=== PATIENT | female | born 1940 | race Caucasian/White ===

== ENCOUNTER 2017-05-22 14:11 | Inpatient (IN) ==
[2017-05-22] MEDS ORDERED: NITROGLYCERIN 2% OINT 1 INCH/GM PACK TOP STA (15:53)
[2017-05-22] MEDS ORDERED: ONDANSETRON 4 MG/2 ML VIAL IV STA (15:53)
[2017-05-22] MEDS ORDERED: FUROSEMIDE 40 MG/4 ML VIAL IV STA (15:53)
[2017-05-22] MEDS ORDERED: ASPIRIN 325 MG TABLET PO STA (15:53)
[2017-05-22] MEDS ORDERED: ALBUTEROL NEB SOLN 5 MG/ML 20 ML/BOTTLE CONT NEB STA (15:53)
[2017-05-22] MEDS ORDERED: methylPREDNISolone SOD SUC 125 MG/2 ML VIAL IV STA (15:53)
[2017-05-22] MEDS ORDERED: MORPHINE 2 MG/1 ML SYRINGE IV STA (15:53)
[2017-05-22 16:12] LABS: Basophils % 0.5 % (0.0-0.8); Eosinophils % 0.3 % (0.00-10.9); Hemoglobin 12.6 GM/DL (12.0-16.0); Immature Granulocytes % 0.3 %; Immature Granulocytes Absolute 0.02 #; Lymphocytes # 0.7 10*3/uL (1.4-4.0); Lymphocytes % 11.6 % (21.3-54.2); Mean Corpuscular HGB Conc 31.5 GM/DL (32-36); Mean Corpuscular Hemoglobin 28 PG (27-34); Mean Corpuscular Volume 89.9 FL (87-102); Mean Platelet Volume 11.6 FL (9.6-12.0); Monocytes # 0.1 10*3/uL (0.11-0.8); Monocytes % 1.9 % (1.7-12.7); Neutrophils # 4.9 10*3/uL (1.4-7.4); Neutrophils % 85.4 % (38.7-73.9); Platelet Count 200 T/CUMM (130-400); Red Blood Count 4.45 MC/CUMM (3.8-5.5); Red Cell Distribution Width 13.2 % (9.3-17.3); White Blood Count 5.8 T/CUMM (4-12)
[2017-05-22] MEDS ORDERED: FUROSEMIDE 40 MG/4 ML VIAL ONE (16:15)
[2017-05-22] MEDS ORDERED: ONDANSETRON 4 MG/2 ML VIAL ONE (16:15)
[2017-05-22] MEDS ORDERED: NITROGLYCERIN 2% OINT 1 INCH/GM PACK TOP ONE (16:15)
[2017-05-22] MEDS ORDERED: FUROSEMIDE 20 MG/2 ML VIAL ONE (16:16)
[2017-05-22] MEDS ORDERED: methylPREDNISolone SOD SUC 125 MG/2 ML VIAL ONE (16:16)
[2017-05-22] MEDS ORDERED: MORPHINE 2 MG/1 ML SYRINGE ONE (16:16)
[2017-05-22] MEDS ORDERED: ASPIRIN 325 MG TABLET ONE (16:16)
[2017-05-22 16:20] LABS: INR 1.2; PT Patient Result 12.5 SECS
--- NOTE | 2017-05-22 16:21 | XRay Report ---
XR chest 1V portable Indication: Chest pain Comparison: Chest x-ray dated October 09, 2016 Technique: Single frontal view of the chest. Findings: The cardiomediastinal silhouette is stable in configuration. Mild patchy opacification within the left lung base suspicious for pneumonia. Visualized osseous and surrounding soft tissue structures appear grossly unchanged. IMPRESSION: Mild patchy opacification within the left lung base suspicious for pneumonia. PROCEDURE INTERPRETED AT [facility] Final Report Signed by: Dr Gilbert Tse
[2017-05-22] MEDS ORDERED: cefTRIAXone 1,000 MG in SODIUM CHLORIDE 0.9% 100 ML IV STA (16:25)
[2017-05-22 16:30] LABS: Lactic Acid 1.4 MMOL/L (0.4-2.0)
--- NOTE | 2017-05-22 16:33 | Emergency Department Note ---
Shaun Mooney Rolonda, am scribing for, and in the presence of, Ravindra Pritchett MD 16:29. Shreyas Mooney Charles R, MD, personally performed the services described in this documentation, ascribed by Pj Dunn in my presence, and it is both accurate and complete [id number] . Arrival - Arrival Chief Complaint: Chest Pain Stated Complaint: chest pain ED Nursing Triage Note: reports was at dr amador office and given an iron infusion left there at 1350 and started having chest pain sharp pain in center of chest that comes and goes. pt sounds congested is anxious and color is dusky. pt is sob and reports feels like a knife is stabbing her when she takes a deep breath Mode of Arrival: Wheelchair Limitations: No Limitations Source: Patient, Significant other (daughter), Old Records Reviewed, RN Notes Reviewed Time Seen by Provider: 05/22/17 15:52 - History of Present Illness HPI Narrative: Pt is a 77 y/o female who was transferred from Dr. Amador to the ED for further evaluation of chest pain with an onset of this morning. Pt has a PMHx of COPD, CHF, Asthma, and PE in the legs and lungs. Daughter states that pt had received her first iron infusion this morning and began to feel light headed and became dizzy as they were leaving. Pt confirms chest pain when taking deep breaths, feels as if she is smothering while laying prone, and swelling in the hands and feet after the infusion. She states that she is taking 40mg Lasix and has been taking Xarelto since x1 month. No other complaint/pain in ED. Onset (ago): hour(s) Consistency: constant Severity: moderate Severity scale (1-10): 5 Allergies/Adverse Reactions: Allergies Allergy/AdvReac Type Severity Reaction Status Date / Time heparin Allergy ANAPHYLAXIS Verified 05/22/17 14:30 Review of System - Review of System 12 point system: reviewed and no additional remarkable complaints except as stated - Review of System Constitutional: Absent: chills, fever Respiratory: Absent: cough Cardiovascular: Present: chest pain (with deep breaths) Musculoskeletal: Present: back pain, joint swelling (feet and hands after infusion) Neurological: Absent: numbness Medical,Surgical,& Family Hx - Medical History Cardio: History of: CHF Respiratory: History of: Asthma, COPD, Pulmonary Embolism Hematology: History of: Bleeding Problems (dvt) - Surgical History Cardiac Surgeries: Sugical HX of: Cardiac Catheterization (3 stents) - Social History Smoking Status: Former smoker Exam Vital Signs: Vital Signs Temperature 97.4 F L 05/22/17 15:30 Pulse Rate 59 L 05/22/17 16:30 Respiratory Rate 20 05/22/17 16:30 Blood Pressure 144/92 05/22/17 16:30 O2 Sat by Pulse Oximetry 100 05/22/17 16:30 - General General appearance: alert, in no apparent distress - Head Head exam: Present: atraumatic, normocephalic - Eye Eye exam: Present: PERRL, EOMI - ENT ENT exam: Present: mucous membranes moist. Absent: mucous membranes dry - Neck Neck exam: Present: full ROM. Absent: tenderness - Chest Chest inspection: Present: symmetric chest wall rise. Absent: tenderness - Respiratory Respiratory exam: Present: accessory muscle use, rales (at base), respiratory distress (has to sit up to breathe), wheezes (harsh bronchiole wheezes), other ( pulmonary edema; volume expansion) - Cardiovascular Cardiovascular exam: Present: regular rate, normal rhythm, normal heart sounds. Absent: murmur - Abdominal Exam Abdominal exam: Present: soft, normal bowel sounds. Absent: tenderness - Extremities Exam Extremities exam: Present: pedal edema (+1 bilaterally), joint swelling (hands and feet due to infusion) - Back Exam Back exam: Present: full ROM. Absent: tenderness - Neurological Exam Neurological exam: Present: alert, oriented X3, CN II-XII intact - Psychiatric Psychiatric exam: Present: normal affect, normal mood - Skin Skin exam: Present: warm, dry, intact, normal color. Absent: rash Course - Consultations Consultation #1: spoke to Dr Amador he does not think this relates to iron infusion to go ahead and admit to hospitalist for COPD exacerbation pneumonia Time: 17:00 Consultation #2: Hospitalist will admit patient Time: 17:01 Results - Labs CBC & BMP: 05/22/17 15:53 05/22/17 15:53 Lab Results: I have reviewed the patients labs Critical Care Time Critical Care Time: Yes Total Critical Care Time: 60 Disposition Clinical Impression: Atypical chest pain, Pneumonia, COPD exacerbation, Acute dyspnea Case discussed with: patient, patient's family Disposition: Still a Patient Condition: Stable Time of Disposition: 17:00
[2017-05-22 16:35] LABS: Apearance,Urine CLEAR (Clear); Bilirubin,Urine Negative (Negative); Blood, Urine Negative (Negative); Glucose,Urine (UA) Negative (Negative); Ketones,Urine 5 mg/dL (Negative); Mucus,Urine Occasional /LPF (Occasional); Nitrite,Urine Negative (Negative); Protein,Urine Negative; RBC,Urine 2 /HPF (0-4); Squamous Epithelial Cell,Urine Occasional /HPF (0-10); Urine Color Yellow (Yellow); Urine Specific Gravity 1.013 (1.001-1.035); Urine Urobilinogen < 2.0 EU/DL (0.2-1.0); WBC,Urine 1 /HPF (0-6)
[2017-05-22 16:47] LABS: Alanine Aminotransferase 13 U/L (13-56); Albumin 3.2 G/DL (3.4-5.0); Alkaline Phosphatase 67 U/L (45-117); Aspartate Amino Transferase 10 U/L (0-37); Bilirubin,Total < 0.39 MG/DL (0.2-1.0); Blood Urea Nitrogen 25 MG/DL (7-18); Calcium 8.9 MG/DL (8.5-10.1); Glucose 156 MG/DL (74-106); Magnesium 2.4 MG/DL (1.8-2.4); Potassium 4.4 MMOL/L (3.5-5.1); Sodium 143 MMOL/L (136-145)
[2017-05-22] MEDS ORDERED: cefTRIAXone 1,000 MG VIAL ONE (17:00)
--- NOTE | 2017-05-22 18:29 | Hospitalist History & Physical ---
Assessment and Plan - Time spent with patient Time spent with patient: Greater than 30 minutes (1) History of blood clot in brain Status: Acute Assessment and plan: Ms. 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 Patient will be started on antibiotics and breathing treatments. Once her meds have been entered into the [facility] system they will be reconciled. Patient will need to remain on her chronic anticoagulation due to her history of clots. Dr. Bang will see and examined patient and further recommendations to follow. Current Visit: Yes (2) Chronic anticoagulation Status: Acute Current Visit: Yes (3) Atypical chest pain Status: Acute Current Visit: Yes (4) Pneumonia Status: Acute Current Visit: Yes (5) COPD exacerbation Status: Acute Current Visit: Yes History of Present Illness Chief complaint: Shortness of breath History of present illness: Ms. Worthington is a 77 year old white female with history of COPD, CHF, asthma, and multiple PEs in the legs and stomach presenting to the ED with shortness of breath, dizziness and chest pain. Patient states she has been anemic and saw Dr. Chapman in his office this morning for an iron transfusion. She states she left his office and started having sharp pain in the center of her chest that comes and goes and feels like a knife stabbing her when she takes a deep breath. She denies headache, dysphagia, hematemesis, hematochezia, diarrhea or constipation, or lower extremity edema. She states she has chronic stomach pain from those clots in her stomach. She says she has [address] Ramirez due to coronary artery disease but denies UT. She states she also has a IVC filter and a "stent in her stomach". Patient had been on Coumadin and Plavix but those both have been stopped and she has been on Xarelto now for 1 month. Upon exam patient has some mild conversational dyspnea and some coarseness bilaterally in her lungs. Her labs are relatively normal and her chest x-ray showing mild patchy opacification within the left lung base suspicious for pneumonia. After discussion with Dr. Pritchett the ED physician and Dr. Bang the admitting hospitalist, it was agreed patient would be admitted for evaluation and treatment. Patient's medications have not been entered into [facility] as of yet and the family did not have a list. As soon as medications are available they will be reconciled. Patient is also a full code. Allergies Allergy/AdvReac Type Severity Reaction Status Date / Time heparin Allergy ANAPHYLAXIS Verified 05/22/17 14:30 Medical,Surgical,& Family Hx - Medical History Cardio: History of: CHF Respiratory: History of: Asthma, COPD, Pulmonary Embolism Hematology: History of: Bleeding Problems (dvt) - Surgical History Cardiac Surgeries: Sugical HX of: Cardiac Catheterization (3 stents) - Family History Family History: Reports;: Family Heart Disease - Social History Smoking Status: Former smoker Have you smoked in the last 12 months: No Frequency of Alcohol Use: None Type of Drug Use: None Marital Status: Lives With:: Alone Functional capacity: independent ambulation Review of systems: A complete 10 system review of systems was obtained and pertinent positives and negatives per HPI Exam - Constitutional Vitals: Period Temp Pulse Resp BP Sys/Liriano Pulse Ox Last 24 Hr 97.4 F-97.4 F 59-81 18-26 121-160/71-92 97-100 Exam: Constitutional System: Mild distress. No tremulousness. Head: Normocephalic, atraumatic. Ears, Nose and Throat System: No evidence of Otitis or Mastoiditis. No epistaxis or discharge Eyes System: Pupils equal, round, and reactive. Extraocular muscles intact. Neck: Supple, without adenopathy, No jugular venous distention. No thyromegaly, neck mass, or prior surgery apparent. Respiratory System: Chest coarse bilaterally to auscultation. Cardiovascular System: Heart with regular rate and rhythm. No murmur. GI System: Abdomen soft, mildly tender. Normo active bowel sounds present. Musculoskeletal System: limbs with no pedal edema. Full distal pulses. Neurological System: No discernable sensory deficit. No aphasia Psychiatric System: Conversation is rational Results - Labs CBC & BMP: 05/22/17 15:53 05/22/17 15:53 Lab Results: I have reviewed the past 24 hour labs - EKG EKG results: sinus rhythm EKG shows: sinus rhythm - Diagnostic Findings Procedure: Chest x-ray: report reviewed by me (Mild patchy opacification within the left lung base suspicious for pneumonia.)
[2017-05-22] MEDS ORDERED: PROMETHAZINE 25 MG/1 ML VIAL IM PRN (18:39)
[2017-05-22] MEDS ORDERED: DOCUSATE SODIUM 100 MG CAPSULE PO PRN (18:39)
[2017-05-22] MEDS ORDERED: ACETAMINOPHEN 325 MG TABLET PO PRN ×2 (18:39)
[2017-05-22] MEDS ORDERED: ALBUTEROL 2.5 MG/3 ML NEB RESP TX PRN (18:39)
[2017-05-22] MEDS ORDERED: ALBUTEROL/IPRATROPIUM 3 ML NEB RESP TX PRN (18:39)
[2017-05-22] MEDS ORDERED: diphenhydrAMINE CAP 25 MG CAPSULE PO PRN (18:39)
[2017-05-22] MEDS ORDERED: guaiFENesin/DM ER 600-30 MG TABLET PO PRN (18:39)
[2017-05-22] MEDS ORDERED: MORPHINE 2 MG/1 ML SYRINGE IV PRN (18:39)
[2017-05-22] MEDS: LEVOFLOXACIN INJ 750 MG in PREMIX 1 EACH IV SCH (21:44)
[2017-05-22] MEDS: SODIUM CHLORIDE 0.9% 1,000 ML IV SCH (21:45)
[2017-05-22] MEDS: ONDANSETRON 4 MG/2 ML VIAL IV PRN (22:48)
[2017-05-22] MEDS ORDERED: TEMAZEPAM 15 MG CAPSULE PO SCH (23:00)
[2017-05-22] MEDS ORDERED: RIVAROXABAN 10 MG TABLET PO SCH (23:00)
[2017-05-23] MEDS: ONDANSETRON 4 MG/2 ML VIAL IV PRN ×2 (05:52→18:24)
[2017-05-23 06:43] LABS: Immature Granulocytes % 0.5 %; Immature Granulocytes Absolute 0.04 #; Lymphocytes % 12.4 % (21.3-54.2); Mean Corpuscular Hemoglobin 29 PG (27-34); Mean Corpuscular Volume 90.1 FL (87-102); Mean Platelet Volume 12.2 FL (9.6-12.0); Monocytes # 0.7 10*3/uL (0.11-0.8); Monocytes % 9.3 % (1.7-12.7); Neutrophils % 77.8 % (38.7-73.9); Platelet Count 164 T/CUMM (130-400); Red Cell Distribution Width 13.3 % (9.3-17.3)
[2017-05-23 06:49] LABS: Hemoglobin 9.6 GM/DL (12.0-16.0); Red Blood Count 3.33 MC/CUMM (3.8-5.5); White Blood Count 7.8 T/CUMM (4-12)
--- NOTE | 2017-05-23 07:45 | EKG Report ---
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
--- NOTE | 2017-05-23 07:45 | XRay Report ---
Exam: XR chest 2V Date: 05/23/2017 4:00 AM Indication: Shortness of breath Comparison: 05/22/2017 Technical: PA lateral Findings: Low volume left effusion and minimal atelectatic change infiltrate in the left base. Heart is normal in size. Prior cervical fusion. Mediastinum is unremarkable. The bony structures reveal no acute findings. Impression: 1. Left basilar pneumonic infiltrate and atelectasis and tiny effusion. 2. Prior cervical fusion. PROCEDURE INTERPRETED AT [facility] DEPARTMENT OF RADIOLOGY Final Report Signed by: Dr. Alpesh Prieto
[2017-05-23 09:21] LABS: Alanine Aminotransferase 12 U/L (13-56); Albumin 2.8 G/DL (3.4-5.0); Alkaline Phosphatase 54 U/L (45-117); Aspartate Amino Transferase 11 U/L (0-37); Bilirubin,Total < 0.39 MG/DL (0.2-1.0); Blood Urea Nitrogen 31 MG/DL (7-18); Calcium 8.6 MG/DL (8.5-10.1); Glucose 94 MG/DL (74-106); Magnesium 2.1 MG/DL (1.8-2.4); Osmolality,Calculated 289.1 MOS/KG (273-304); Phosphorous 4.3 MG/DL (2.5-4.9); Potassium 4.9 MMOL/L (3.5-5.1); Sodium 142 MMOL/L (136-145); Total Protein 5.3 G/DL (6.4-8.3)
[2017-05-23] MEDS: PANTOPRAZOLE 40 MG TABLET PO SCH (09:53)
[2017-05-23] MEDS: SODIUM CHLORIDE 0.9% 1,000 ML IV SCH ×2 (09:57→21:21)
--- NOTE | 2017-05-23 13:05 | Hospitalist Progress Note ---
Assessment and Plan - Time spent with patient Time spent with patient: Less than 30 minutes (1) Acute dyspnea Status: Acute Assessment and plan: patient complained of episodes of SOB throughout the night and this morning: Plan to continue antibiotics and continue home medications; a.m. labs. Current Visit: Yes (2) Atypical chest pain Status: Acute Current Visit: Yes (3) COPD exacerbation Status: Acute Current Visit: Yes (4) Chronic anticoagulation Status: Acute Current Visit: Yes (5) History of blood clot in brain Status: Acute Current Visit: Yes (6) Pneumonia Status: Acute Current Visit: Yes Hospitalist: Subjective Interval history: 05/23/27 Patient verbalizes she feels a little better but very little compared to yesterday but still feels short of breath often without exertion. Patient in no acute distress and was talking on phone when I entered the room without any distress. Exam - Constitutional Vitals: Period Temp Pulse Resp BP Sys/Liriano Pulse Ox Last 24 Hr 96.5 F-98.1 F 59-83 18-26 98-160/52-92 91-100 General appearance: normal weight - Head Head exam: Present: normal inspection - Eye Eye exam: Present: EOMI Pupils: Present: MAXIMO - Neck Neck exam: Present: normal inspection - Respiratory Respiratory exam: Present: rhonchi - GI/Abdominal GI/Abdominal exam: Present: normal bowel sounds, soft. Absent: guarding, tenderness, rebound - Extremities Exam Extremities exam: Absent: edema - Neurological Exam Neurological exam: Present: alert, oriented X3 - Psychiatric Psychiatric exam: Present: normal affect - Skin Skin exam: Present: normal color, warm, dry Results - Labs CBC & BMP: 05/23/17 05:45 05/23/17 06:33 Lab Results: I have reviewed the past 24 hour labs Quality Measures - VTE Contraindication to Pharmacological VTE Prophylaxis: Already on Theraputic Agent , No Prophylaxis Needed
[2017-05-23] MEDS ORDERED: NITROGLYCERIN SL 0.4 MG TABLET SL PRN (14:14)
[2017-05-23] MEDS ORDERED: FUROSEMIDE 40 MG TABLET PO PRN (14:14)
[2017-05-23] MEDS ORDERED: fentaNYL 100 MCG/HR PATCH TRANSDERM SCH (14:30)
[2017-05-23] MEDS ORDERED: LORazepam 0.5 MG TABLET PO SCH (14:30)
--- NOTE | 2017-05-23 15:24 | ECHO Report ---
Lauren Worthington Exam Date: 05/23/2017 09:26 Referring Physician: Technologist: Martina Torres Age: 77 Ht (in): 67 Wt (lb): 156 Gender: F Exam Location: [facility] Echo Indications: chronic anti coag, hx. blood clot brain, SOB, chest pain, COPD, pneumonia BP: 103 / 52 HR: 69 Rhythm: Sinus Technical Quality: Good IMPRESSIONS EF 55-60 % Grade I/IV diastolic dysfunction (abnormal relaxation filling pattern), normal to mildly elevated filling pressures. Normal right ventricular size. The right atrium is mildly enlarged. The left atrium is mildly enlarged. Mitral valve sclerosis. Trace mitral valve regurgitation. Aortic valve sclerosis. No aortic valve regurgitation. Mild tricuspid valve regurgitation. PAP40 mmHG. Morphologically normal pulmonic valve. No pericardial effusion. Normal size aortic root and proximal ascending aorta. MEASUREMENTS (Male / Female) Normal Values 2D ECHO LV Diastolic Diameter PLAX 4.1 cm 4.2 - 5.9 / 3.9 - 5.3 cm LV Systolic Diameter PLAX 3.1 cm LV Fractional Shortening PLAX 23.0 % IVS Diastolic Thickness 1.0 cm 0.6 - 1.0 / 0.6 - 0.9 cm LVPW Diastolic Thickness 1.0 cm 0.6 - 1.0 / 0.6 - 0.9 cm RV Internal Dim ED PLAX 2.3 cm Aortic Root Diameter 2.3 cm LA Systolic Diameter LX 3.0 cm 3.0 - 4.0 / 2.7 - 3.8 cm DOPPLER TR Peak Velocity 261.0 cm/s TR Peak Gradient 27.2 mmHg FINDINGS Left Ventricle EF 55-60 % Grade I/IV diastolic dysfunction (abnormal relaxation filling pattern), normal to mildly elevated filling pressures. Right Ventricle Normal right ventricular size. Right Atrium The right atrium is mildly enlarged. Left Atrium The left atrium is mildly enlarged. Mitral Valve Mitral valve sclerosis. Trace mitral valve regurgitation. Aortic Valve Aortic valve sclerosis. No aortic valve regurgitation. Tricuspid Valve Morphologically normal tricuspid valve. Mild tricuspid valve regurgitation. PAP40 mmHG. Pulmonic Valve Morphologically normal pulmonic valve. Pericardium No pericardial effusion. Aorta Normal size aortic root and proximal ascending aorta. Cirstian Cadena (Electronically Signed) Final Date: 23 May 2017 15:22
[2017-05-23] MEDS: FLUTICASONE/SALMETEROL 250-50 DISKUS 14 DOSE INH SCH ×2 (16:19→21:12)
[2017-05-23] MEDS: predniSONE 10 MG TABLET PO SCH (21:12)
[2017-05-23] MEDS: oxyCODONE/ACETAMINOPHEN 5-325 MG TABLET PO SCH (21:12)
[2017-05-23] MEDS: LORazepam 0.5 MG TABLET PO SCH (21:12)
[2017-05-23] MEDS: DOXYCYCLINE HYCLATE 100 MG CAPSULE PO SCH (21:13)
[2017-05-23] MEDS: DONEPEZIL 10 MG TABLET PO SCH (21:13)
[2017-05-23] MEDS: TEMAZEPAM 15 MG CAPSULE PO SCH (21:13)
[2017-05-23] MEDS: MONTELUKAST 10 MG TABLET PO SCH (21:13)
[2017-05-23] MEDS: RIVAROXABAN 20 MG TABLET PO SCH (21:14)
[2017-05-23] MEDS: LEVOFLOXACIN INJ 750 MG in PREMIX 1 EACH IV SCH (21:14)
[2017-05-24] MEDS: fentaNYL 100 MCG/HR PATCH TRANSDERM SCH (00:38)
[2017-05-24 05:17] LABS: Basophils % 0.2 % (0.0-0.8); Eosinophils % 0.2 % (0.00-10.9); Hematocrit 27.5 VOL% (35.7-47.0); Hemoglobin 8.4 GM/DL (12.0-16.0); Immature Granulocytes % 0.6 %; Immature Granulocytes Absolute 0.03 #; Lymphocytes # 0.8 10*3/uL (1.4-4.0); Lymphocytes % 16.3 % (21.3-54.2); Mean Corpuscular HGB Conc 30.5 GM/DL (32-36); Mean Corpuscular Hemoglobin 28 PG (27-34); Mean Corpuscular Volume 91.4 FL (87-102); Mean Platelet Volume 11.7 FL (9.6-12.0); Monocytes # 0.3 10*3/uL (0.11-0.8); Monocytes % 5.4 % (1.7-12.7); Neutrophils # 3.8 10*3/uL (1.4-7.4); Neutrophils % 77.3 % (38.7-73.9); Platelet Count 141 T/CUMM (130-400); Red Blood Count 3.01 MC/CUMM (3.8-5.5); Red Cell Distribution Width 13.5 % (9.3-17.3)
[2017-05-24 05:50] LABS: Calcium 8.6 MG/DL (8.5-10.1); Magnesium 2.4 MG/DL (1.8-2.4); Osmolality,Calculated 294.6 MOS/KG (273-304); Potassium 5.1 MMOL/L (3.5-5.1)
[2017-05-24 06:03] LABS: Alanine Aminotransferase 12 U/L (13-56); Albumin 2.9 G/DL (3.4-5.0); Alkaline Phosphatase 52 U/L (45-117); Aspartate Amino Transferase 10 U/L (0-37); Bilirubin,Total < 0.39 MG/DL (0.2-1.0); Blood Urea Nitrogen 25 MG/DL (7-18); Calcium 8.6 MG/DL (8.5-10.1); Glucose 106 MG/DL (74-106); Magnesium 2.3 MG/DL (1.8-2.4); Osmolality,Calculated 293.6 MOS/KG (273-304); Phosphorous 3.5 MG/DL (2.5-4.9); Potassium 5.6 MMOL/L (3.5-5.1); Sodium 146 MMOL/L (136-145); Total Protein 5.4 G/DL (6.4-8.3)
[2017-05-24] MEDS ORDERED: PANTOPRAZOLE 40 MG TABLET PO SCH (09:00)
[2017-05-24] MEDS ORDERED: fentaNYL 100 MCG/HR PATCH TRANSDERM SCH (09:00)
[2017-05-24] MEDS: PANTOPRAZOLE 40 MG TABLET PO SCH (09:09)
[2017-05-24] MEDS: FLUTICASONE/SALMETEROL 250-50 DISKUS 14 DOSE INH SCH ×2 (09:12→21:04)
--- NOTE | 2017-05-24 09:40 | Hospitalist Progress Note ---
Assessment and Plan (1) Gastroparesis Status: Acute Assessment and plan: The patient's gastroparesis symptoms and abdominal pain are improving. The patient's family request consultation with Dr. Terry and I have ordered that. We are going to continue the patient on antiacid regimen and we can reevaluate her abdominal pain tomorrow. Current Visit: Yes (2) Chronic anticoagulation Status: Acute Current Visit: Yes Hospitalist: Subjective Interval history: The patient has less abdominal pain today. She is not having vomiting and she is able to tolerate her food. The patient's daughter is concerned that Dr. Terry has not visited. Exam - Constitutional Vitals: Period Temp Pulse Resp BP Sys/Liriano Pulse Ox Last 24 Hr 97 F-98.4 F 65-79 16-20 112-172/64-79 95-100 General appearance: no acute distress - Respiratory Respiratory exam: Present: clear to auscultation bilaterally, prolonged expiratory phase - Cardiovascular Cardiovascular exam: Present: regular rate and rhythm - GI/Abdominal GI/Abdominal exam: Present: normal bowel sounds Results - Labs CBC & BMP: 05/24/17 05:10 05/24/17 05:10 Lab Results: I have reviewed the past 24 hour labs Quality Measures - VTE Contraindication to Pharmacological VTE Prophylaxis: Already on Theraputic Agent , No Prophylaxis Needed
--- NOTE | 2017-05-24 10:05 | Hospitalist Progress Note ---
Assessment and Plan (1) Acute dyspnea Status: Acute Assessment and plan: patient complained of episodes of SOB throughout the night and this morning: Plan to continue antibiotics and continue home medications; a.m. labs. Current Visit: Yes (2) Atypical chest pain Status: Acute Current Visit: Yes (3) COPD exacerbation Status: Acute Current Visit: Yes (4) Chronic anticoagulation Status: Acute Current Visit: Yes (5) History of blood clot in brain Status: Acute Current Visit: Yes (6) Pneumonia Status: Acute Current Visit: Yes Hospitalist: Subjective Interval history: 05/24/17 Patient sitting up in bed eating breakfast; tolerating well without any shortness of breath. Denies any events throughout the night of SOB, nausea, vomiting. Denies any fever, chills, cough or pain at the time of exam this a.m. Exam - Constitutional Vitals: Period Temp Pulse Resp BP Sys/Liriano Pulse Ox Last 24 Hr 97 F-98.4 F 65-79 16-20 112-172/64-79 95-100 General appearance: normal weight - Head Head exam: Present: normal inspection - Eye Eye exam: Present: EOMI Pupils: Present: MAXIMO - Neck Neck exam: Present: normal inspection Results - Labs CBC & BMP: 05/24/17 05:10 05/24/17 05:10 Quality Measures - VTE Contraindication to Pharmacological VTE Prophylaxis: Already on Theraputic Agent , No Prophylaxis Needed
--- NOTE | 2017-05-24 10:15 | Pulmonology Consult Note ---
History of Present Illness Chief complaint: COPD. Asthma. Gastroparesis. History of present illness: Edgar Gavin, [facility], acting as scribe for Dr. Alpesh Terry Mrs. Worthington is a 77-year-old white female from [place], [place], who we have been asked to see in pulmonary consultation for evaluation and treatment. The request for consultation was made by Dr. Workman. The patient was previously followed from a pulmonary standpoint by Dr. Ramos. She saw Dr. Woodward as a new patient on 01/31/2017. She is followed from a cardiology standpoint by Dr. Ramirez at [facility]. Her primary care physician has been Dr. Taj Bunch. This patient had an IV iron infusion at oncology clinic 05/22/2017. Apparently, during the infusion the patient began to feel lightheaded and became dizzy.. She developed chest pain that was worsened with taking a deep breath. She reported feeling smothered while laying prone. There is associated swelling of the hands and feet, Dr. Chapman advised the patient to go to the emergency room for further evaluation and care. On evaluation, the patient was found to have an acute exacerbation of COPD as well as an acute right perihilar infiltrate. She was admitted for further evaluation and care. The patient was seen today along with Prisca Olivas, HELGA, and 2 young lady who I believe are her granddaughters. She gives a somewhat rambling history, therefore some of her history and review of systems is obtained from the chart. She has had increasing shortness of breath and dyspnea on exertion that she reports began after her iron infusion. She denies any cardiac angina or palpitations other than as noted above. There is been no bleeding from any site. She reports a recent history of being evaluated by Dr. Joe Trent in [place] for what sounds like some sort of venous surgery of her legs. She has had recurrent clots. She denies any change in bowel or bladder habits. No TIA symptoms or syncope. All other systems were reviewed and were negative. Allergies: Heparin agents. The patient says that she has trouble using albuterol and a nebulizer at home as it makes her too shaky and too nervous. Home medications: See list Hospital medications: See list Immunizations: Pneumovax was given in 2005. Flu shot was given in 2016. Past medical history: COPD. Asthma. Gastroesophageal reflux disease. Previous neck and low back surgery. Chronic pain. Allergic sinusitis. Degenerative joint disease. Previous right carotid endarterectomy. Venous stripping of both lower extremities. Arteriosclerotic heart disease. She says she thinks she has [address] There is a past history of deep venous thrombophlebitis. History of pulmonary emboli. Hyperlipidemia. The patient has had a hysterectomy, cervical fusion, lumbar fusion, carpal tunnel release, and bilateral breast biopsies. She uses oxygen at night. Social history: The patient smoked 1-1/2 packs of cigarettes a day for 44 years for a total of 68-[id number]-luts history. She states she quit smoking in the year 1999. 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 She says she loves are not closed. She is . Past procedures: On 05/08/2016 the patient had a negative fiberoptic bronchoscopy by Dr. Ramos. This was done at [facility]. CT scan of the chest on 04/30/2016 was compared to a study done 09/20/[address] Wolf Arnold. Her findings were: #1. Mild scattered opacity in both lungs mainly the left lower lung concerning for atelectasis and minimal scarring. #2 areas of bronchial wall thickening seen bilaterally most prominent in the left lower lung. #3 mild to moderate emphysema. #4 0.8 cm nodular opacity in the right middle lung near the right minor and major fissures. This was not seen on the study done in 2007. Dr. Arnold said that this was nonspecific and recommend a follow-up since neoplasm could not be excluded. She is scheduled for follow-up CT 08/12/2017. EGD done 03/02/[address] Mancera required dilatation of the narrowing of a Adalgisa distal esophagus. Mild gastritis was present. Colonoscopy done 03/02/2014 showed a very redundant colon with pandiverticulosis with small internal hemorrhoids. Chest x-ray. Done 05/23/2017. My interpretation. Increased right perihilar markings most likely secondary to an acute infiltrate consistent with pneumonia. Microbiology: Blood cultures are negative at day 1. Laboratory: White count is 5000 with 77.3% segs, 16.3% lymphs, and 5.4% monos; H &H 8.4/27.5 with low to low normal indices and normal red blood cell distribution width; platelet count 141,000; INR was 1.2 at admission; creatinine 1.10, BUN 23, sodium 146, potassium 5.1, magnesium 2.4; calcium 8.6, albumin 2.9, total protein 5.4; lactic acid at admission was 1.4; liver function tests within normal limits; troponins were normal; BNP 40; lipase 123.0 ; urinalysis at admission showed no evidence of infection Home Medications Medication Instructions Recorded Confirmed Type Dexlansoprazole [Dexilant] 60 mg PO BEDTIME 05/22/17 05/22/17 History Donepezil [Aricept] 10 mg PO BEDTIME 05/22/17 05/22/17 History Doxycycline Monohydrate 100 mg PO BEDTIME 05/22/17 05/22/17 History Furosemide Tab [Lasix Tab] 40 mg PO DAILY PRN 05/22/17 05/22/17 History LORazepam [Lorazepam] 1 mg PO DIRECTED 05/22/17 05/22/17 History Meloxicam 15 mg PO BEDTIME 05/22/17 05/22/17 History Montelukast Tab [Singulair Tab] 10 mg PO BEDTIME 05/22/17 05/22/17 History Nitroglycerin Sl Tab [Nitrostat] 0.4 mg SL Q5M PRN 05/22/17 05/22/17 History Oxycodone HCl/Acetaminophen 10 mg PO BEDTIME 05/22/17 05/22/17 History [Percocet 10-325 mg Tablet] Rivaroxaban [Xarelto] 20 mg PO BEDTIME 05/22/17 05/22/17 History Temazepam [Restoril] 30 mg PO BEDTIME 05/22/17 05/22/17 History fentaNYL [Fentanyl 100 mcg/hr 100 mcg TRANSDERM Q72H 05/22/17 05/22/17 History Patch] guaiFENesin [Mucinex] 1,200 mg PO BEDTIME 05/22/17 05/22/17 History predniSONE TAB [PredniSONE] 10 mg PO BEDTIME 05/22/17 05/22/17 History Allergies Allergy/AdvReac Type Severity Reaction Status Date / Time heparin Allergy ANAPHYLAXIS Verified 05/22/17 14:30 Exam (Pulmonay) H&P - Constitutional Vitals: Period Temp Pulse Resp BP Sys/Liriano Pulse Ox Last 24 Hr 97 F-98.4 F 65-79 16-20 112-172/64-79 95-100 Exam: Psych: Oriented x 3 HEENT: Pupils, irises, sclera, conjunctiva, and eyelids are normal. The face is symmetrical without rash or masses. Lips, tongue, buccal mucosa, soft and hard palates, and pharynx are WNL Neck: Symmetrical. Thyroid was not palpated. Lymphatics: No submandibular, cervical, or supraclavicular adenopathy Chest: Coarse large airway congestion and mild tracheal/large airway wheeze. There are no peripheral wheezes heard, however, the patient may not be moving enough air to produce these at this time Breasts: Deferred CV: Heart sounds are distant. I did not hear a gallop. Arterial: Carotid upstrokes were fair at best. I did not hear any bruit. Upper extremity pulses were palpable. Lower extremity pulses were nonpalpable, but I see no evidence of ischemia. Venous: Venous stripping of the lower extremities. Neck and upper extremities were normal. Abd: No appreciable organomegaly, masses, tenderness, or bruit; Bowel sounds are positive 4; The aorta was not palpated /Rectal: Deferred Extremities: No clubbing, cyanosis, edema, or obvious DVT Skin: No cancerous or infectious lesions of the exposed, examined skin; the perineal area was not examined M/S: Age appropriate loss of the normal curvature of the cervical, thoracic, and lumbar spine Neurological: Cranial nerves are intact with some decreased tone acuity bilaterally; long-term motor function was intact; sensory exam was not done; gait was not tested The remainder of the exam was noncontributory. Impression: #1: Acute right perihilar infiltrate compatible with pneumonia #2: Acute exacerbation of COPD #3: Asthma #4: History of 0.8 cm pulmonary nodule in the right middle lung near the junction of the major and minor fissures seen on CT scan 04/30/2016. This was not seen on scan 09/20/2008 is most likely benign, but needs follow-up. Note, she is scheduled for follow-up CT in July 2017. #5: Arteriosclerotic heart disease with 3 stents; followed by Dr. 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 Given the patient's acute pneumonia, it is probably in her best interest to keep her inpatient at least another day or 2 so she can receive IV antibiotics. If and when sputum culture can be obtained, this would better guide us on our outpatient treatment. Medical,Surgical,& Family Hx - Medical History Cardio: History of: CHF HEENT: No history of: Eye Problem (wears contacts) Respiratory: History of: Asthma, COPD, Pulmonary Embolism Hematology: History of: Bleeding Problems (dvt), Clotting Problems (hx dvt, veins stripped bilat lower ext) - Surgical History Cardiac Surgeries: Sugical HX of: Cardiac Catheterization (3 stents) Reproductive Surgeries: Surgical HX of;: Breast Surgery (breast biopsy x 5) Orthopedic Surgeries: Surgical HX of;: Orthopedic Surgery (carpal tunnel surgery ) - Family History Family History: Reports;: Family Heart Disease - Social History Smoking Status: Former smoker Frequency of Alcohol Use: None Type of Drug Use: None Results - Labs CBC & BMP: 05/24/17 05:10 05/24/17 05:10 Quality Measures - VTE Contraindication to Pharmacological VTE Prophylaxis: Already on Theraputic Agent , No Prophylaxis Needed
[2017-05-24] MEDS: miSOPROStol 200 MCG TABLET PO SCH (11:01)
[2017-05-24] MEDS: DORNASE ALFA 2.5 MG/2.5 ML VIAL RESP TX SCH ×2 (11:04→18:50)
[2017-05-24] MEDS: SODIUM CHLORIDE 0.9% 1,000 ML IV SCH (12:28)
[2017-05-24] MEDS: IPRATROPIUM 500 MCG/2.5 ML NEB RESP TX SCH ×2 (13:24→18:50)
[2017-05-24] MEDS: LEVOFLOXACIN INJ 750 MG in PREMIX 1 EACH IV SCH (21:02)
[2017-05-24] MEDS: LORazepam 0.5 MG TABLET PO SCH (21:04)
[2017-05-24] MEDS: predniSONE 10 MG TABLET PO SCH (21:05)
[2017-05-24] MEDS: RIVAROXABAN 20 MG TABLET PO SCH (21:05)
[2017-05-24] MEDS: TEMAZEPAM 15 MG CAPSULE PO SCH (21:05)
[2017-05-24] MEDS: DOXYCYCLINE HYCLATE 100 MG CAPSULE PO SCH (21:05)
[2017-05-24] MEDS: DONEPEZIL 10 MG TABLET PO SCH (21:05)
[2017-05-24] MEDS: oxyCODONE/ACETAMINOPHEN 5-325 MG TABLET PO SCH (21:05)
[2017-05-24] MEDS: MONTELUKAST 10 MG TABLET PO SCH (21:05)
[2017-05-25] MEDS: IPRATROPIUM 500 MCG/2.5 ML NEB RESP TX SCH ×4 (00:20→19:56)
[2017-05-25] MEDS: SODIUM CHLORIDE 0.9% 1,000 ML IV SCH ×2 (02:23→18:18)
[2017-05-25] MEDS: DORNASE ALFA 2.5 MG/2.5 ML VIAL RESP TX SCH ×2 (07:29→19:56)
[2017-05-25] MEDS: PANTOPRAZOLE 40 MG TABLET PO SCH (09:00)
[2017-05-25] MEDS: miSOPROStol 200 MCG TABLET PO SCH (09:00)
[2017-05-25] MEDS: FLUTICASONE/SALMETEROL 250-50 DISKUS 14 DOSE INH SCH ×2 (09:00→21:21)
--- NOTE | 2017-05-25 09:48 | XRay Report ---
History: Pneumonia Date: 05/25/2017 Study: Chest x-ray PA and lateral Comparison exam: May 23, 2017 The cardiac silhouette is not enlarged. There is no mediastinal mass. The pulmonary vasculature is not engorged. There is some mild subsegmental atelectasis in the left lower lobe which is increased. There is a tiny amount of left pleural effusion which is increased. There are some probable scattered emphysematous changes in the lungs. Surgical hardware from anterior cervical fusion overlies the lower cervical spine. Impression: Mild left lower lobe atelectasis and tiny left pleural effusion, both slightly increased. Otherwise unchanged PROCEDURE INTERPRETED AT [facility] DEPARTMENT OF RADIOLOGY Final Report Signed by: Dr. Fanny Guillen
--- NOTE | 2017-05-25 11:00 | Pulmonology Progress Note ---
Pulmonary - PN: Subj Interval history: Is a 77-year-old white female whom I have seen in my office in the past. I saw in pulmonary consultation 05/24/2017. My impressions were. #1: Acute right perihilar infiltrate compatible with pneumonia #2: Acute exacerbation of COPD #3: Asthma #4: History of 0.8 cm pulmonary nodule in the right middle lung near the junction of the major and minor fissures seen on CT scan 04/30/2016. This was not seen on scan 09/20/2008 is most likely benign, but needs follow-up. Note, she is scheduled for follow-up CT in July 2017. #5: Arteriosclerotic heart disease with 3 stents; followed by Dr. 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 Today's chest x-ray shows normal size heart. There is no enlargement of the pulmonary arteries. Both hilar areas contain benign calcifications mediastinum is normal lung buckner are hyperinflated and there is a persistent infiltrate in the lateral basilar segment of the left lower lung and there is a small associated pleural effusion. Looking back to the patient' s chest x-rays I think a small infiltrate was developing this area and is now more apparent. There are no positive cultures. Patient's wheezing is better but not resolved. Lab. White count is 5000 with 77 segs. H&H is 8.4/27.5. Electrolytes are normal. Creatinine is 1.1 with a BUN of 23. Protein and albumin are low at 5.42.9 respectively. Physical exam. Vital signs. See below Psychiatric. Oriented 3 Face. Symmetrical. No swelling of the lips or tongue. Neck. Symmetrical. No meningismus. Lymphatics. No submandibular cervical supraclavicular or epitrochlear adenopathy Chest is symmetrical with some hyperinflation and some kyphosis. She has a tracheal and large airway wheeze with associated congestion. Heart. No gallop Abdomen. Positive bowel sounds Extremities. No edema no evidence of deep venous thrombophlebitis. Neurologic. Cranial nerves are intact. Long track motor functions intact. The remainder the physical exam is negative. Plan: 05/24/2017. #1: Agree with present antibiotics #2: Start inhalation therapy with Atrovent 4 times daily and Pulmozyme twice daily #3: Start Cytotec 200 mcg daily #4: Follow-up chest x-ray #5: Check sputum for Gram stain, culture and sensitivity #6: Check cold agglutinins and Legionella #7: See orders 8. We appreciate this consult and will follow along with you. Given the patient's acute pneumonia, it is probably in her best interest to keep her inpatient at least another day or 2 so she can receive IV antibiotics. If and when sputum culture can be obtained, this would better guide us on our outpatient treatment. 05/25/2017. 1. See today's note above 2. Chest x-ray shows medial basilar segment left lower lung infiltrate with small effusion which is most likely a bacterial pneumonia. Patient continues to have large airway wheezing which is better than it was one day ago. Continue present therapy. Down the road we will repeat chest x-ray. Exam (Progress Note) - Constitutional Vitals: Period Temp Pulse Resp BP Sys/Liriano Pulse Ox Last 24 Hr 96.7 F-97.8 F 62-82 16-20 105-146/56-76 91-99 Results - Labs CBC & BMP: 05/24/17 05:10 05/24/17 05:10
--- NOTE | 2017-05-25 15:47 | Hospitalist Progress Note ---
Assessment and Plan (1) Pneumonia Status: Acute Assessment and plan: Patient continues to have heavy congestion in lungs and productive sputum, continue dual antibiotic therapy of doxycycline and levofloxacin. Blood cultures negative to date. Pulmonary to continue to follow and expect disposition in at least 2 or more days. Current Visit: Yes (2) COPD exacerbation Status: Acute Assessment and plan: Pulmonary following, appreciate their assistance, continue inhaled therapy Current Visit: Yes (3) Acute dyspnea Status: Acute Assessment and plan: Improving, see note above an note from pulmonary. Current Visit: Yes (4) Gastroparesis Status: Acute Assessment and plan: She continues to have some abdominal discomfort, consider motility agent such as Reglan if pain continued and outpatient GI follow-up. Current Visit: Yes Hospitalist: Subjective Interval history: Patient is resting comfortably in bed, in no acute distress and no acute events overnight. She states she continues to be short of breath and have audible wheezing. Chest x-ray shows mediobasilar segment the left lower lung infiltrate with small effusion which is consistent with bacterial pneumonia. Patient is also being followed by pulmonology, appreciate their assistance. He also continues to have some abdominal discomfort and excessive flatulence. Patient denies nausea, vomiting, diarrhea, constipation, chest pain, shortness of breath or pain/swelling in lower extremities. Exam - Constitutional Vitals: Period Temp Pulse Resp BP Sys/Liriano Pulse Ox Last 24 Hr 96.7 F-98.1 F 62-81 16-20 105-148/56-81 91-99 General appearance: normal weight, no acute distress - Head Head exam: Present: normal inspection - Eye Eye exam: Present: EOMI Pupils: Present: MAXIMO - Respiratory Respiratory exam: Present: rhonchi, wheezes - Cardiovascular Cardiovascular exam: Present: regular rate and rhythm - GI/Abdominal GI/Abdominal exam: Present: normal bowel sounds, soft - Neurological Exam Neurological exam: Present: alert, oriented X3 - Psychiatric Psychiatric exam: Present: normal affect, normal mood - Skin Skin exam: Present: normal color, warm Results - Labs CBC & BMP: 05/24/17 05:10 05/24/17 05:10 Quality Measures - VTE Contraindication to Pharmacological VTE Prophylaxis: Already on Theraputic Agent , No Prophylaxis Needed
[2017-05-25] MEDS: LEVOFLOXACIN INJ 750 MG in PREMIX 1 EACH IV SCH (21:18)
[2017-05-25] MEDS: TEMAZEPAM 15 MG CAPSULE PO SCH (21:19)
[2017-05-25] MEDS: oxyCODONE/ACETAMINOPHEN 5-325 MG TABLET PO SCH (21:19)
[2017-05-25] MEDS: DOXYCYCLINE HYCLATE 100 MG CAPSULE PO SCH (21:20)
[2017-05-25] MEDS: RIVAROXABAN 20 MG TABLET PO SCH (21:20)
[2017-05-25] MEDS: predniSONE 10 MG TABLET PO SCH (21:20)
[2017-05-25] MEDS: MONTELUKAST 10 MG TABLET PO SCH (21:20)
[2017-05-25] MEDS: DONEPEZIL 10 MG TABLET PO SCH (21:20)
[2017-05-25] MEDS: LORazepam 0.5 MG TABLET PO SCH (21:21)
[2017-05-26] MEDS: IPRATROPIUM 500 MCG/2.5 ML NEB RESP TX SCH ×4 (00:43→19:40)
[2017-05-26] MEDS: SODIUM CHLORIDE 0.9% 1,000 ML IV SCH ×2 (06:04→09:14)
[2017-05-26] MEDS: DORNASE ALFA 2.5 MG/2.5 ML VIAL RESP TX SCH ×2 (07:31→19:48)
[2017-05-26] MEDS: FLUTICASONE/SALMETEROL 250-50 DISKUS 14 DOSE INH SCH ×2 (09:13→20:51)
[2017-05-26] MEDS: PANTOPRAZOLE 40 MG TABLET PO SCH (09:13)
[2017-05-26] MEDS: miSOPROStol 200 MCG TABLET PO SCH (09:13)
--- NOTE | 2017-05-26 14:15 | Pulmonology Progress Note ---
Pulmonary - PN: Subj Interval history: Is a 77-year-old white female whom I have seen in my office in the past. I saw in pulmonary consultation 05/24/2017. My impressions were. #1: Acute right perihilar infiltrate compatible with pneumonia #2: Acute exacerbation of COPD #3: Asthma #4: History of 0.8 cm pulmonary nodule in the right middle lung near the junction of the major and minor fissures seen on CT scan 04/30/2016. This was not seen on scan 09/20/2008 is most likely benign, but needs follow-up. Note, she is scheduled for follow-up CT in July 2017. #5: Arteriosclerotic heart disease with 3 stents; followed by Dr. 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 Today's chest x-ray shows normal size heart. There is no enlargement of the pulmonary arteries. Both hilar areas contain benign calcifications mediastinum is normal lung buckner are hyperinflated and there is a persistent infiltrate in the lateral basilar segment of the left lower lung and there is a small associated pleural effusion. Looking back to the patient' s chest x-rays I think a small infiltrate was developing this area and is now more apparent. There are no positive cultures. Patient's wheezing is better but not resolved. Lab. White count is 5000 with 77 segs. H&H is 8.4/27.5. Electrolytes are normal. Creatinine is 1.1 with a BUN of 23. Protein and albumin are low at 5.42.9 respectively. 05/26/2017. Patient was seen along with the family member. She says she is much better she is getting up and moving about. Tracheal and large airway wheezes resolved and she still has some congestion and needs to mobilize this. I have added Acapella to her breathing treatments. Have encouraged her to do her best to mobilize her secretions. She could be ready to discharge soon if she continues to improve at this rate. There are no positive results from microbiology. Electrolytes are normal. Creatinine is 1.1 with a BUN of 23 H&H is gradually dropped to 8.4/27.5 with normal indices of red blood cell distribution with platelets are 141,000. Calcium phosphorus and magnesium and liver function tests are normal. Physical exam. Vital signs. See below Psychiatric. Oriented 3 Face. Symmetrical. No swelling of the lips or tongue. Neck. Symmetrical. No meningismus. Lymphatics. No submandibular cervical supraclavicular or epitrochlear adenopathy Chest is symmetrical with some hyperinflation and some kyphosis. She has a tracheal and large airway wheeze with associated congestion. As of 05/26/2017 this is significantly improved. Heart. No gallop Abdomen. Positive bowel sounds Extremities. No edema no evidence of deep venous thrombophlebitis. Neurologic. Cranial nerves are intact. Long track motor functions intact. The remainder the physical exam is negative. Plan: 05/24/2017. #1: Agree with present antibiotics #2: Start inhalation therapy with Atrovent 4 times daily and Pulmozyme twice daily #3: Start Cytotec 200 mcg daily #4: Follow-up chest x-ray #5: Check sputum for Gram stain, culture and sensitivity #6: Check cold agglutinins and Legionella #7: See orders 8. We appreciate this consult and will follow along with you. Given the patient's acute pneumonia, it is probably in her best interest to keep her inpatient at least another day or 2 so she can receive IV antibiotics. If and when sputum culture can be obtained, this would better guide us on our outpatient treatment. 05/25/2017. 1. See today's note above 2. Chest x-ray shows medial basilar segment left lower lung infiltrate with small effusion which is most likely a bacterial pneumonia. Patient continues to have large airway wheezing which is better than it was one day ago. Continue present therapy. Down the road we will repeat chest x-ray. 05/26/2017. 1. See my note above. 2. E PA and lateral of the chest in the morning. Note the patient has small left lower lung pneumonia. 3. Acapella added to inhalation Exam (Progress Note) - Constitutional Vitals: Period Temp Pulse Resp BP Sys/Liriano Pulse Ox Last 24 Hr 97.0 F-98.8 F 65-80 16-20 122-157/57-81 93-100 Results - Labs CBC & BMP: 05/24/17 05:10 05/24/17 05:10 Specialty Discharge - Follow Up or Referrals
--- NOTE | 2017-05-26 14:28 | Hospitalist Progress Note ---
Assessment and Plan (1) Pneumonia Status: Acute Assessment and plan: repeat cxr shows pneumonia, cont levaquin, increase steroids, and cont pulmozyme and atrovent Current Visit: Yes (2) COPD exacerbation Status: Acute Assessment and plan: cont atrovent and pulmozyme Current Visit: Yes (3) Chronic anticoagulation Status: Acute Assessment and plan: hx of dvt and pe, cont xarelto Current Visit: Yes (4) Gastroparesis Status: Acute Assessment and plan: protonix Current Visit: Yes (5) Cervical pain (neck) Status: Acute Assessment and plan: cont fentanyl patch and percocet Current Visit: Yes Hospitalist: Subjective Interval history: Patient is requesting a regular diet. She is eating and drinking well and I will Hep-Lock her IV fluids. Dr. Terry has seen her today. She is stable and will be discharged home tomorrow Exam - Constitutional Vitals: Period Temp Pulse Resp BP Sys/Liriano Pulse Ox Last 24 Hr 97.0 F-98.8 F 65-80 16-20 122-157/57-81 93-100 Exam: Heart Rate-[RRR] Lungs-[few wheezes but good breath sounds ] GI-[+bs soft, NT] Ext-[no edema] Neuro [Motor 5/5], [alert and oriented times 3] psych [normal mood and affect] General [no acute distress] Results - Labs CBC & BMP: 05/24/17 05:10 05/24/17 05:10 Lab Results: I have reviewed the past 24 hour labs Labs: bc no growth - Diagnostic Findings Procedure: Chest x-ray: report reviewed by me (LLL pneumonia ), Ultrasound: report reviewed by me (echo ef 55%, diastolic dysfunction PAP 40) Quality Measures - VTE Contraindication to Pharmacological VTE Prophylaxis: Already on Theraputic Agent , No Prophylaxis Needed Specialty Discharge - Follow Up or Referrals
[2017-05-26 15:17] LABS: Calcium 8.8 MG/DL (8.5-10.1); Osmolality,Calculated 285.8 MOS/KG (273-304); Potassium 4.4 MMOL/L (3.5-5.1)
[2017-05-26] MEDS: LEVOFLOXACIN INJ 750 MG in PREMIX 1 EACH IV SCH (20:49)
[2017-05-26] MEDS: oxyCODONE/ACETAMINOPHEN 5-325 MG TABLET PO SCH (20:50)
[2017-05-26] MEDS: RIVAROXABAN 20 MG TABLET PO SCH (20:50)
[2017-05-26] MEDS: MONTELUKAST 10 MG TABLET PO SCH (20:51)
[2017-05-26] MEDS: DOXYCYCLINE HYCLATE 100 MG CAPSULE PO SCH (20:51)
[2017-05-26] MEDS: DONEPEZIL 10 MG TABLET PO SCH (20:51)
[2017-05-26] MEDS: LORazepam 0.5 MG TABLET PO SCH (20:51)
[2017-05-26] MEDS: TEMAZEPAM 15 MG CAPSULE PO SCH (20:51)
[2017-05-27] MEDS: IPRATROPIUM 500 MCG/2.5 ML NEB RESP TX SCH ×3 (00:24→12:12)
[2017-05-27] MEDS: fentaNYL 100 MCG/HR PATCH TRANSDERM SCH (01:58)
--- NOTE | 2017-05-27 07:18 | Pulmonology Progress Note ---
Pulmonary - PN: Subj Interval history: Edgar Gavin, [facility] acting as scribe for Dr. Alpesh Manning This is a 77-year-old white female who Dr. Manning has seen in his office in the past. We saw in pulmonary consultation 05/24/2017. At that time, our impressions were: #1: Acute right perihilar infiltrate compatible with pneumonia #2: Acute exacerbation of COPD #3: Asthma #4: History of 0.8 cm pulmonary nodule in the right middle lung near the junction of the major and minor fissures seen on CT scan 04/30/2016. This was not seen on scan 09/20/2008 is most likely benign, but needs follow-up. Note, she is scheduled for follow-up CT in July 2017. #5: Arteriosclerotic heart disease with 3 stents; followed by Dr. 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 Today's chest x-ray shows normal size heart. There is no enlargement of the pulmonary arteries. Both hilar areas contain benign calcifications mediastinum is normal lung buckner are hyperinflated and there is a persistent infiltrate in the lateral basilar segment of the left lower lung and there is a small associated pleural effusion. Looking back to the patient' s chest x-rays I think a small infiltrate was developing this area and is now more apparent. There are no positive cultures. Patient's wheezing is better but not resolved. 05/26/2017. Patient was seen along with the family member. She says she is much better she is getting up and moving about. Tracheal and large airway wheezes resolved and she still has some congestion and needs to mobilize this. I have added Acapella to her breathing treatments. Have encouraged her to do her best to mobilize her secretions. She could be ready to discharge soon if she continues to improve at this rate. There are no positive results from microbiology. Electrolytes are normal. Creatinine is 1.1 with a BUN of 23 H&H is gradually dropped to 8.4/27.5 with normal indices of red blood cell distribution with platelets are 141,000. Calcium phosphorus and magnesium and liver function tests are normal. 05/27/2017. The patient was seen today along with Hernesto Ramos RN. Patient's sputum began to mobilize yesterday. She states she is feeling really well this morning. On chest exam she continues to have a small amount of laryngeal congestion, but this will improve now that she is able to mobilize her secretions. Patient's chest x-ray was ordered for today has not yet been done. Medications have been reviewed. The patient's home medication of doxycycline has been discontinued. We are unsure what she was on this for. Nonetheless, we have continued her Levaquin. Labs been reviewed. Most recent labs showed a white count of 5000 with 77.3% segs; H&H 8.4/27.5; platelet count 141,000; creatinine 1.00, BUN 15, sodium 144 , potassium 4.4, magnesium 2.4. She has known iron deficiency anemia. Note, the time of our initial consultation the patient reported having recently had an iron infusion to Dr. Chapman's office. Blood cultures have grown no organisms. Exam (Progress Note) - Constitutional Vitals: Period Temp Pulse Resp BP Sys/Liriano Pulse Ox Last 24 Hr 96.5 F-98.6 F 70-92 16-20 124-147/59-83 93-100 Exam: Chest... See above Heart no gallop Abdomen is nontender nondistended; bowel sounds are positive 4 Extremities with nothing to suggest acute deep venous thrombophlebitis Psychiatric oriented 3 Neurologic long-term motor functions intact Plan: Continue present treatment. If the patient is discharged, we would recommend Levaquin 500 mg p.o. daily for 10 days and continue Singulair 10 mg daily. With regard to the prednisone, we would suggest 40 mg daily for 5 days, then 20 mg daily for 7 days, then 10 mg daily thereafter. She will be scheduled follow-up with Dr. Manning in approximately 1 month with chest x-ray and CBC. Results - Labs CBC & BMP: 05/24/17 05:10 05/26/17 14:39 Specialty Discharge - Follow Up or Referrals Follow up with: Alpesh Manning MD [Physician] - (with DR. MANNING in one month with CXR and CBC)
[2017-05-27] MEDS: DORNASE ALFA 2.5 MG/2.5 ML VIAL RESP TX SCH (07:29)
--- NOTE | 2017-05-27 08:03 | XRay Report ---
Exam: XR chest 2V Date: 05/27/2017 4:00 AM Indication: Left lower lung infiltrate Comparison: 05/25/2017 Technical: PA lateral Findings: Low volume left effusion is present with underlying atelectatic change infiltrate. Previous cervical fusion noted. The heart is normal in size. The neck clips is present over the neck. Impression: 1. Persistent left basilar atelectatic change, pneumonic infiltrate and effusion PROCEDURE INTERPRETED AT [facility] DEPARTMENT OF RADIOLOGY Final Report Signed by: Dr. Alpesh Prieto
[2017-05-27] MEDS: FLUTICASONE/SALMETEROL 250-50 DISKUS 14 DOSE INH SCH (08:36)
[2017-05-27] MEDS: PANTOPRAZOLE 40 MG TABLET PO SCH (08:36)
[2017-05-27] MEDS: miSOPROStol 200 MCG TABLET PO SCH (08:36)
[2017-05-27] MEDS ORDERED: predniSONE 10 MG TABLET PO SCH (09:00)
--- NOTE | 2017-05-27 11:02 | Discharge Summary ---
<Nena Rubi - Last Filed: 05/27/17 11:39> Hospital Course - Hospital Course Hospital Course: Abimbola is a 77-year-old white female with a history of COPD, CHF, asthma, CAD , stents, and multiple PEs that presented to the ED on 05/22 with shortness of breath, dizziness and chest pain. Patient stated that she was seen in Dr. Chapman's office this morning for a iron transfusion. After the visit, she stated that she began having a sharp pain in the center of her chest. She also reported feeling like she was being stabbed with a knife when taking deep breaths. Patient also reported being on Xarelto for the past month. CXR revealed 'mild patchy opacification within left lung base'. Patient was treated with IV Levaquin, IV steroids for pneumonia and COPD exacerbation. Home medications restarted. Patient continued to have issues with shortness of breath and the family requested pulmonary be consulted. Cytotec was started as well as inhalation therapy. Pt. began to improve with therapy. Pt. wheezing continued and Acapella was added to her breathing treatments. Pt. has improved and she began to mobilize her secretions. She is stable for discharge. Per recommendation of pulmonology, pt is to take Levaquin 500 mg po for 10 days and to continue Singulair 10mg daily. Pt. will be weaned off on prednisone. Patient is currently on Xarelto for history of DVT and PE in the past. She also is on chronic pain medicines for a bad neck. Pt. is to follow up with PCP. Pt has also been scheduled for 1 month follow up with Dr. Manning. Specialty Discharge - Follow Up or Referrals Follow up with: Francis Sparks MD [Physician] - 1 Week Alpesh Manning MD [Physician] - 1 Month (Call to make a follow up appt on Saturday (Offices closed at time of D/C) with DR. MANNING in one month with CXR and CBC) Discharge Plan - Discharge Data Disposition: Home Health Service - Discharge Medications New Dornase Evan [Pulmozyme] 2.5 mg RESP TX BID #60 vial Ipratropium Neb [Atrovent Neb] 500 mcg RESP TX TID #90 vial Fluticasone/Salmeterol 250-50 [Advair 250-50] 1 puff INH BID #1 inhaler Levofloxacin Tab [Levaquin Tab] 750 mg PO DAILY #4 tablet Continue Dexlansoprazole [Dexilant] 60 mg PO BEDTIME Nitroglycerin Sl Tab [Nitrostat] 0.4 mg SL Q5M PRN PRN Reason: Chest Pain guaiFENesin [Mucinex] 1,200 mg PO BEDTIME fentaNYL [Fentanyl 100 mcg/hr Patch] 100 mcg TRANSDERM Q72H Rivaroxaban [Xarelto] 20 mg PO BEDTIME Oxycodone HCl/Acetaminophen [Percocet 10-325 mg Tablet] 10 mg PO BEDTIME Montelukast Tab [Singulair Tab] 10 mg PO BEDTIME LORazepam [Lorazepam] 1 mg PO DIRECTED Donepezil [Aricept] 10 mg PO BEDTIME predniSONE TAB [PredniSONE] 10 mg PO BEDTIME #30 tablet Temazepam [Restoril] 30 mg PO BEDTIME Discontinued Furosemide Tab [Lasix Tab] 40 mg PO DAILY PRN PRN Reason: Edema Doxycycline Monohydrate 100 mg PO BEDTIME Meloxicam 15 mg PO BEDTIME - Follow Up or Referral Follow Up: Francis Sparks MD [Physician] - 1 Week Alpesh Manning MD [Physician] - 1 Month (Call to make a follow up appt on Saturday (Offices closed at time of D/C) with DR. MANNING in one month with CXR and CBC) - Forms/Instructions Instructions: Viral Pneumonia (GEN), Chronic Obstructive Pulmonary Disease (GEN ), Gastroparesis (GEN) Exam - Constitutional Vitals: Period Temp Pulse Resp BP Sys/Liriano Pulse Ox Last 24 Hr 96.5 F-98.6 F 70-92 16-20 124-153/59-87 93-100 Discharge Results Procedures and tests throughout hospitalization: Pending Orders 05/22/17 16:06 Blood Culture Stat Labs on day of discharge: Labs from last 24 hours 05/26/17 05/26/17 14:39 14:39 Sodium 144 Potassium 4.4 Chloride 107 Carbon Dioxide 30 Anion Gap 11.4 BUN 15 Creatinine 1.00 GFR Calculation 56 BUN/Creatinine Ratio 15.00 Glucose 87 Calculated Osmolality 285.8 Calcium 8.8 B-Natriuretic Peptide 66 Preliminary micro results at discharge 05/22/17 16:06 Blood Culture - Preliminary Blood No growth at 3 days 05/22/17 16:06 Blood Culture - Preliminary Blood No growth at 3 days DS: Provider Date of admission: 05/22/17 17:12 Primary care physician: Taj Bucnh Attending physician on admission: Kyle Lewis MD Consults: 05/24/17 09:33 Consult to Physician [CONS] Routine Comment: Consulting Provider: Alpesh Manning Person Notified: MD AWARE Date Notified: 05/24/17 Time Notified: 10:02 05/27/17 10:09 Consult to Case Mgmt/Social Srvs [CONS] Routine Reason for Case Mgmt/Social Srvs: Equipment Consult Comment: nebulizer for copd Discharging clinician: Nena Rubi NP <Layne Mendoza R - Last Filed: 05/27/17 14:15> Hospital Course - Time spent with patient Time with patient DS: Greater than 30 minutes (45 min) Diagnosis - Discharge Diagnosis (1) Pneumonia Status: Acute (2) COPD exacerbation Status: Acute (3) Chronic anticoagulation Status: Acute (4) Gastroparesis Status: Acute (5) Cervical pain (neck) Status: Acute Discharge Plan - Discharge Data Condition at Discharge: Stable Discharge Diet: heart healthy Activity: resume usual activities as tolerated Hygiene: no restrictions Weight Bearing at Discharge: full weight bearing - Forms/Instructions Additional Discharge Instructions: repeat chest ct in Jul 2017. nebulizer machine for home Exam - Constitutional General appearance: normal weight, no acute distress - Respiratory Respiratory exam: Present: rhonchi. Absent: wheezes - Cardiovascular Cardiovascular exam: Present: regular rate and rhythm. Absent: systolic murmur - GI/Abdominal GI/Abdominal exam: Present: normal bowel sounds, soft. Absent: tenderness - Extremities Exam Extremities exam: Present: normal inspection, normal capillary refill - Psychiatric Psychiatric exam: Present: normal affect, normal mood
[2017-05-27 11:37] VITALS: BP 147/87
== END 2017-05-27 13:11 | disposition home or self-care (01) | DRG 190 ==
LOC: N.ED 14:11 → SUATTDRO 17:12 → N.EDINP 17:12 → N.5E 18:23
PROVIDERS: ADMIT Family Medicine; ATTEND Internal Medicine